=== PATIENT | female | born 1995 | race Caucasian/White ===

== ENCOUNTER → 2025-06-04 16:37 | Outpatient (CLI) | payer OTHER, SELFPAY ==
[2025-06-04 19:15] LABS: Urine N gonorrhoeae NOT DETECTED
[2025-06-04 19:24] LABS: Urine Chlamydia NOT DETECTED
[2025-06-05 14:58] LABS: Hepatitis B Surface Antigen NEGATIVE s/c (NEGATIVE)
[2025-06-05 15:36] LABS: HIV 1 & 2 Ab/Ag 4th Gen Combo NEGATIVE (NEGATIVE); Hep C Virus Ab w/Reflex Quant NEGATIVE s/c (NEGATIVE)
== END ==
PROVIDERS: PCP Student in an Organized Health Care Education/Training Program; Referring Provider Student in an Organized Health Care Education/Training Program; Visit Provider Student in an Organized Health Care Education/Training Program
DX: Z20.2 Contact with and (suspected) exposure to infections with a predominantly sexual mode of transmission (principal); Z11.3 Encounter for screening for infections with a predominantly sexual mode of transmission
CPT/HCPCS: 36415; 86592; 86803; 87340; 87389; 87491; 87591